=== PATIENT | female | born 1970 | race Caucasian/White ===

== ENCOUNTER 2018-06-22 07:42 | Emergency (ER) | payer BC ==
[~2018-06-22] VITALS: Ht 177.8 cm; Wt 119.5 kg
[~2018-06-22 07:42] MED LIST: CITA-278 PO; FERR-68 PO; OMEP-84 PO; S-AD200T6 PO; TOP25T PO; VITA1TAB20 PO
[2018-06-22] MEDS ORDERED: metoclopramide 5 mg/ml inj IV ONE (08:25)
[2018-06-22] MEDS ORDERED: normal saline 1000ML IV soln IVB ONE ×2 (08:25)
[2018-06-22] MEDS ORDERED: diphenhydrAMINE 50 mg/ml inj IV ONE (08:25)
[2018-06-22] MEDS ORDERED: ketorolac trometh. 30mg/ml inj. IV ONE (08:25)
[2018-06-22 08:28] LABS: CLARITY,URINE SLIGHTLY CLOUDY (Clear); COLOR,URINE YELLOW (Yellow); GLUCOSE, URINE NEGATIVE (Neg); KETONES,URINE NEGATIVE (Neg); LEUKOCYTE ESTERASE ,URINE NEGATIVE (Neg); NITRITES, URINE NEGATIVE (Neg); OCCULT BLOOD,URINE NEGATIVE (Neg); PH,URINE 5.5 (4.8-8.0); PROTEIN,URINE NEGATIVE (Neg); UROBILINOGEN,URINE 0.2 E.U/dL (0.2-1.0)
[2018-06-22 08:38] LABS: UA COLLECTION TYPE CLN CATCH MIDSTREAM
[2018-06-22 08:42] LABS: BACTERIA,URINE 1+ /HPF (Neg); RBC,URINE NONE SEEN /HPF (0-2); SQUAMOUS EPITHELIAL CELL,UR MANY /LPF (FEW); WBC,URINE 0-4 /HPF (0-4)
[2018-06-22 08:43] LABS: MUCUS STRANDS FEW /LPF (Neg); WBC CLUMPS,URINE FEW /HPF (NEGATIVE)
[2018-06-22 09:13] LABS: BASOPHILS % (AUTO) 0.5 % (0-1); EOSINOPHILS # (AUTO) 0.2 X10'3 (0-0.9); EOSINOPHILS % (AUTO) 3.1 % (0-6); HEMATOCRIT 37.8 % (35.0-45.0); HEMOGLOBIN 12.5 g/dl (12.0-16.0); LYMPHOCYTES # (AUTO) 1.7 X10'3 (1.1-4.8); LYMPHOCYTES % (AUTO) 21.9 % (21-51); MEAN CORPUSCULAR HEMOGLOBIN 29.1 PG (27.0-31.0); MEAN CORPUSCULAR VOLUME 88.1 FL (78-98); MEAN PLATELET VOLUME 8.5 FL (7.4-10.4); MONOCYTES # (AUTO) 0.5 X10'3 (0-0.9); MONOCYTES % (AUTO) 5.8 % (2-12); NEUTROPHILS # (AUTO) 5.4 X10'3 (1.8-7.7); NEUTROPHILS % (AUTO) 68.7 % (42-75); PLATELET COUNT 324 X10'3 (140-440); RED CELL DISTRIBUTION WIDTH 13.3 % (11.5-14.5); WHITE BLOOD COUNT 7.8 X10'3 (4.5-11.0)
[2018-06-22 09:27] LABS: PROTHROMBIN TIME 9.7 SECONDS (9.0-12.0)
[2018-06-22 09:37] LABS: ALANINE AMINOTRANSFERASE 24 U/L (12-78); ALBUMIN 3.4 G/DL (3.4-5.0); ALBUMIN/GLOBULIN RATIO 0.8 (1.1-1.5); ALKALINE PHOSPHATASE 101 IU/L (46-116); ANION GAP 9 (8-16); ASPARTATE AMINO TRANSFERASE 9 U/L (10-37); BILIRUBIN,TOTAL 0.2 MG/DL (0.1-1.0); BLOOD UREA NITROGEN 18 MG/DL (7-18); BUN/CREATININE RATIO 17.6 (6.6-38.0); CALCIUM 9.1 MG/DL (8.5-10.1); CHLORIDE 104 MMOL/L (99-107); CREATININE 1.02 MG/DL (0.40-0.90); GLUCOSE 107 MG/DL (70-104); POTASSIUM 4.1 MMOL/L (3.5-5.1); SODIUM 139 MMOL/L (135-145); TOTAL CARBON DIOXIDE 25.7 MMOL/L (24-32); TOTAL PROTEIN 7.8 G/DL (6.4-8.2); eGFR 58 ML/MIN
[2018-06-22 10:37] VITALS: BP 129/67
[2018-06-22] MEDS ORDERED: ONDA4TAB12 PO (11:22)
== END 2018-06-22 11:42 | disposition home or self-care (01) ==
LOC: ER 07:42
DX: R10.11 Right upper quadrant pain (principal); F17.210 Nicotine dependence, cigarettes, uncomplicated; Z88.0 Allergy status to penicillin; Z91.018 Allergy to other foods; Z79.899 Other long term (current) drug therapy; Z86.19 Personal history of other infectious and parasitic diseases
CPT/HCPCS: 36415; 80053; 81001; 85025; 85610; 96361; 96374; 96375; 99284; J1200; J1885; J2765; J7030

== ENCOUNTER 2018-11-10 08:06 | Outpatient (CLI) | payer OTHER ==
[~2018-11-10 08:06] MED LIST changes: -CITA-278 PO; +CITA20TA28 PO; +ONDA4TAB12 PO
[2018-11-10 09:22] LABS: BASOPHILS # (AUTO) 0.1 X10'3 (0-0.2); BASOPHILS % (AUTO) 1.2 % (0-1); EOSINOPHILS # (AUTO) 0.3 X10'3 (0-0.9); EOSINOPHILS % (AUTO) 2.8 % (0-6); HEMATOCRIT 39.7 % (35.0-45.0); HEMOGLOBIN 13.4 g/dl (12.0-16.0); LYMPHOCYTES # (AUTO) 2.3 X10'3 (1.1-4.8); LYMPHOCYTES % (AUTO) 23.9 % (21-51); MEAN CORPUSCULAR HEMOGLOBIN 28.9 PG (27.0-31.0); MEAN CORPUSCULAR HGB CONC 33.7 g/dL (33.0-36.5); MEAN PLATELET VOLUME 7.7 FL (7.4-10.4); MONOCYTES # (AUTO) 0.6 X10'3 (0-0.9); MONOCYTES % (AUTO) 6.1 % (2-12); NEUTROPHILS # (AUTO) 6.4 X10'3 (1.8-7.7); PLATELET COUNT 383 X10'3 (140-440); RED BLOOD COUNT 4.62 X10'6 (4.20-5.60); RED CELL DISTRIBUTION WIDTH 13.1 % (11.5-14.5); WHITE BLOOD COUNT 9.6 X10'3 (4.5-11.0)
[2018-11-10 09:42] LABS: CLARITY,URINE CLOUDY (Clear); COLOR,URINE YELLOW (Yellow); GLUCOSE, URINE NEGATIVE (Neg); KETONES,URINE NEGATIVE (Neg); LEUKOCYTE ESTERASE ,URINE NEGATIVE (Neg); NITRITES, URINE NEGATIVE (Neg); OCCULT BLOOD,URINE NEGATIVE (Neg); PROTEIN,URINE NEGATIVE (Neg); UROBILINOGEN,URINE 0.2 E.U/dL (0.2-1.0)
[2018-11-10 09:44] LABS: ALANINE AMINOTRANSFERASE 28 U/L (12-78); ALBUMIN 3.3 G/DL (3.4-5.0); ALBUMIN/GLOBULIN RATIO 0.7 (1.1-1.5); ALKALINE PHOSPHATASE 93 IU/L (46-116); ANION GAP 12 (8-16); ASPARTATE AMINO TRANSFERASE 10 U/L (10-37); BILIRUBIN,TOTAL 0.2 MG/DL (0.1-1.0); BLOOD UREA NITROGEN 24 MG/DL (7-18); BUN/CREATININE RATIO 24.7 (6.6-38.0); CALCIUM 8.9 MG/DL (8.5-10.1); CHLORIDE 104 MMOL/L (99-107); CHOL/HDL RATIO 5.3 (0.00-4.99); CHOLESTEROL 217 MG/DL (0-200); CREATININE 0.97 MG/DL (0.40-0.90); GLUCOSE 106 MG/DL (70-104); HDL CHOLESTEROL 41 MG/DL (35-60); LDL CHOLESTEROL 102 MG/DL (50-100); POTASSIUM 4.3 MMOL/L (3.5-5.1); SODIUM 138 MMOL/L (135-145); TOTAL CARBON DIOXIDE 21.6 MMOL/L (24-32); TOTAL PROTEIN 7.8 G/DL (6.4-8.2); TRIGLYCERIDES 342 MG/DL (20-135); eGFR 61 ML/MIN
[2018-11-10 09:45] LABS: UA COLLECTION TYPE NON-SPECIFIED
[2018-11-10 10:31] LABS: HYALINE CASTS 0-3 /LPF (NEGATIVE); MUCUS STRANDS FEW /LPF (Neg); SQUAMOUS EPITHELIAL CELL,UR MANY /LPF (FEW)
[2018-11-10 10:32] LABS: BACTERIA,URINE 2+ /HPF (Neg); RBC,URINE 0-2 /HPF (0-2); WBC,URINE 0-4 /HPF (0-4)
== END 2018-11-10 23:59 | disposition home or self-care (01) ==
LOC: LAB 08:06
PROVIDERS: ATTEND Family Medicine
DX: Z00.00 Encounter for general adult medical examination without abnormal findings (principal); F43.10 Post-traumatic stress disorder, unspecified; F32.9 Major depressive disorder, single episode, unspecified; Z86.19 Personal history of other infectious and parasitic diseases
CPT/HCPCS: 36415; 80053; 80061; 81001; 84439; 84443; 85025

== ENCOUNTER 2019-01-17 06:38 | Outpatient (CLI) | payer OTHER ==
[~2019-01-17 06:38] MED LIST changes: +PHEN-824 PO
[2019-01-17 09:12] LABS: ALANINE AMINOTRANSFERASE 24 U/L (12-78); ALBUMIN 3.2 G/DL (3.4-5.0); ALBUMIN/GLOBULIN RATIO 0.7 (1.1-1.5); ALKALINE PHOSPHATASE 85 IU/L (46-116); ANION GAP 8 (8-16); ASPARTATE AMINO TRANSFERASE 9 U/L (10-37); BILIRUBIN,TOTAL 0.3 MG/DL (0.1-1.0); BLOOD UREA NITROGEN 13 MG/DL (7-18); BUN/CREATININE RATIO 14.1 (6.6-38.0); CALCIUM 8.5 MG/DL (8.5-10.1); CHLORIDE 104 MMOL/L (99-107); CREATININE 0.92 MG/DL (0.40-0.90); GLUCOSE 96 MG/DL (70-104); POTASSIUM 4.1 MMOL/L (3.5-5.1); SODIUM 138 MMOL/L (135-145); TOTAL CARBON DIOXIDE 25.6 MMOL/L (24-32); TOTAL PROTEIN 7.6 G/DL (6.4-8.2); eGFR 65 ML/MIN
[2019-01-17] MEDS ORDERED: ONDA4TAB12 PO (11:36)
[2019-01-17] MEDS ORDERED: CEPH500C5 PO (11:36)
[2019-01-17] MEDS ORDERED: HYDR-3965 PO (11:36)
== END 2019-01-17 23:59 | disposition home or self-care (01) ==
LOC: LAB 06:38
PROVIDERS: ATTEND Family Medicine
DX: N20.0 Calculus of kidney (principal); F32.9 Major depressive disorder, single episode, unspecified; F43.10 Post-traumatic stress disorder, unspecified; Z86.19 Personal history of other infectious and parasitic diseases
CPT/HCPCS: 36415; 80053; 86803

== ENCOUNTER 2019-01-17 09:13 | Emergency (ER) | payer OTHER ==
[~2019-01-17] VITALS: Ht 177.8 cm; Wt 124.1 kg
[2019-01-17] MEDS ORDERED: ibuprofen tablet 400 MG TABLET PO ONE (10:45)
[2019-01-17] MEDS ORDERED: HYDROcodone/acetaminophen 5mg/325mg tablet PO ONE (10:45)
[2019-01-17 10:51] LABS: CLARITY,URINE SLIGHTLY CLOUDY (Clear); COLOR,URINE YELLOW (Yellow); GLUCOSE, URINE NEGATIVE (Neg); KETONES,URINE NEGATIVE (Neg); LEUKOCYTE ESTERASE ,URINE MODERATE (Neg); NITRITES, URINE NEGATIVE (Neg); OCCULT BLOOD,URINE MODERATE (Neg); PH,URINE 5.5 (4.8-8.0); PROTEIN,URINE TRACE mg/dl (Neg); UROBILINOGEN,URINE 0.2 E.U/dL (0.2-1.0)
[2019-01-17 10:55] LABS: UA COLLECTION TYPE CLN CATCH MIDSTREAM
[2019-01-17 10:57] LABS: WBC,URINE TNTC /HPF (0-4)
[2019-01-17 10:58] LABS: BACTERIA,URINE 3+ /HPF (Neg); SQUAMOUS EPITHELIAL CELL,UR MODERATE /LPF (FEW); WBC CLUMPS,URINE FEW /HPF (NEGATIVE)
[2019-01-17] MEDS ORDERED: cephalexin 250mg capsule PO ONE (11:35)
[2019-01-17] MEDS ORDERED: CEPH500C5 PO (11:36)
[2019-01-17] MEDS ORDERED: ONDA4TAB12 PO (11:36)
[2019-01-17] MEDS ORDERED: HYDR-3965 PO (11:36)
[2019-01-17 12:15] VITALS: BP 121/75
== END 2019-01-17 12:18 | disposition home or self-care (01) ==
LOC: ER 09:14
DX: N10 Acute pyelonephritis (principal); F17.210 Nicotine dependence, cigarettes, uncomplicated; Z88.0 Allergy status to penicillin; Z91.018 Allergy to other foods; Z79.899 Other long term (current) drug therapy; Z79.2 Long term (current) use of antibiotics; Z87.440 Personal history of urinary (tract) infections; Z86.19 Personal history of other infectious and parasitic diseases
CPT/HCPCS: 74176; 81001; 99284

== ENCOUNTER 2019-01-26 09:17 | Outpatient (CLI) | payer OTHER ==
[~2019-01-26 09:17] MED LIST changes: +CEPH500C5 PO; +HYDR-3965 PO
[2019-01-26] MEDS ORDERED: iohexol 300mg/ml 100ml inj. ONE (09:22)
== END 2019-01-26 23:59 | disposition home or self-care (01) ==
LOC: 64 CT 09:17
PROVIDERS: ATTEND Family Medicine
DX: K76.0 Fatty (change of) liver, not elsewhere classified (principal); K57.30 Diverticulosis of large intestine without perforation or abscess without bleeding; K76.89 Other specified diseases of liver; Z87.891 Personal history of nicotine dependence; Z90.710 Acquired absence of both cervix and uterus
CPT/HCPCS: 74177; Q9967

== ENCOUNTER 2019-02-07 07:01 | Day surgery (SDC) | payer OTHER ==
[~2019-02-07] VITALS: Ht 177.8 cm; Wt 124.1 kg
[2019-02-07 07:05] VITALS: BP 151/92
[2019-02-07] MEDS ORDERED: SERT50TA PO (07:26)
[2019-02-07] MEDS ORDERED: SERT25TA PO (07:26)
[2019-02-07] MEDS ORDERED: CHOL2000 PO (07:27)
[2019-02-07] MEDS ORDERED: ESOM40CA49 PO (07:27)
[2019-02-07] MEDS ORDERED: ALBU8.5H8 IH (07:28)
[2019-02-07] MEDS ORDERED: PRAZ2CAP2 PO (07:28)
[2019-02-07] MEDS ORDERED: RIZA10TA27 PO (07:29)
[2019-02-07] MEDS ORDERED: VALA500T PO (07:30)
[2019-02-07] MEDS ORDERED: HYDR-4383 PO (07:31)
[2019-02-07] MEDS ORDERED: fentaNYL/PF 50MCG/1 ML 2ML syringe ONE ×2 (07:39→08:40)
[2019-02-07] MEDS ORDERED: MIDAZolam 5mg/5ml vial ONE (07:39)
[2019-02-07] MEDS ORDERED: diphenhydrAMINE 50 mg/ml inj ONE (07:40)
[2019-02-07 09:06] VITALS: BP 138/84
[2019-02-07 09:16] VITALS: BP 126/73
[2019-02-07 09:26] VITALS: BP 132/73
[2019-02-07 09:36] VITALS: BP 135/84
== END 2019-02-07 09:40 | disposition home or self-care (01) ==
LOC: GI LAB 07:01
PROVIDERS: ATTEND Internal Medicine Gastroenterology
DX: D12.5 Benign neoplasm of sigmoid colon (principal); K57.30 Diverticulosis of large intestine without perforation or abscess without bleeding; Z87.891 Personal history of nicotine dependence; Z98.890 Other specified postprocedural states; F10.10 Alcohol abuse, uncomplicated; F19.10 Other psychoactive substance abuse, uncomplicated; F32.9 Major depressive disorder, single episode, unspecified; Z90.710 Acquired absence of both cervix and uterus; Z85.41 Personal history of malignant neoplasm of cervix uteri; Z87.19 Personal history of other diseases of the digestive system
CPT/HCPCS: 45385; 99152; 99153; C1773; J1200; J2250; J3010; J7040; A4620

== ENCOUNTER 2019-03-16 08:13 | Outpatient (CLI) | payer OTHER ==
[~2019-03-16 08:13] MED LIST changes: +ALBU8.5H8 IH; -CEPH500C5 PO; +CHOL2000 PO; -CITA20TA28 PO; +ESOM40CA49 PO; -FERR-68 PO; -HYDR-3965 PO; +HYDR-4383 PO; -OMEP-84 PO; -ONDA4TAB12 PO; -PHEN-824 PO; +PRAZ2CAP2 PO; +RIZA10TA27 PO; +SERT25TA PO; +SERT50TA PO; -TOP25T PO; +VALA500T PO
[2019-03-16] MEDS ORDERED: iohexol 300mg/ml 100ml inj. ONE (08:38)
== END 2019-03-16 23:59 | disposition home or self-care (01) ==
LOC: 64 CT 08:13
PROVIDERS: ATTEND Family Medicine
DX: N82.1 Other female urinary-genital tract fistulae (principal); J43.9 Emphysema, unspecified
CPT/HCPCS: 74177; Q9967

== ENCOUNTER 2019-04-05 05:18 | Inpatient (IN) | payer OTHER ==
[2019-04-03 10:41] LABS: BASOPHILS # (AUTO) 0.1 X10'3 (0-0.2); BASOPHILS % (AUTO) 1.1 % (0-1); EOSINOPHILS # (AUTO) 0.3 X10'3 (0-0.9); EOSINOPHILS % (AUTO) 3.1 % (0-6); LYMPHOCYTES # (AUTO) 2.2 X10'3 (1.1-4.8); LYMPHOCYTES % (AUTO) 24.9 % (21-51); MEAN CORPUSCULAR HEMOGLOBIN 28.8 PG (27.0-31.0); MEAN CORPUSCULAR HGB CONC 33.6 g/dL (33.0-36.5); MEAN PLATELET VOLUME 8.6 FL (7.4-10.4); MONOCYTES # (AUTO) 0.5 X10'3 (0-0.9); MONOCYTES % (AUTO) 5.6 % (2-12); NEUTROPHILS # (AUTO) 5.7 X10'3 (1.8-7.7); NEUTROPHILS % (AUTO) 65.3 % (42-75); PRE OP HEMATOCRIT 39.3 % (35.0-45.0); PRE OP HEMOGLOBIN 13.2 g/dL (12.0-16.0); PRE OP PLATELET COUNT 333 X10'3 (140-440); RED BLOOD COUNT 4.57 X10'6 (4.20-5.60); RED CELL DISTRIBUTION WIDTH 13.5 % (11.5-14.5)
[2019-04-03 10:44] LABS: CLARITY,URINE CLOUDY (Clear); COLOR,URINE YELLOW (Yellow); GLUCOSE, URINE NEGATIVE (Neg); KETONES,URINE NEGATIVE (Neg); LEUKOCYTE ESTERASE ,URINE TRACE (Neg); NITRITES, URINE NEGATIVE (Neg); OCCULT BLOOD,URINE NEGATIVE (Neg); PH,URINE 5.5 (4.8-8.0); PROTEIN,URINE NEGATIVE (Neg); UROBILINOGEN,URINE 0.2 E.U/dL (0.2-1.0)
[2019-04-03 10:50] LABS: PRE OP INR 0.9 INR
[2019-04-03 10:52] LABS: UA COLLECTION TYPE CLN CATCH MIDSTREAM
[2019-04-03 10:54] LABS: BACTERIA,URINE 2+ /HPF (Neg); MUCUS STRANDS NONE SEEN /LPF (Neg); RBC,URINE NONE SEEN /HPF (0-2); SQUAMOUS EPITHELIAL CELL,UR FEW /LPF (FEW); WBC,URINE 50-100 /HPF (0-4)
[2019-04-03 10:55] LABS: WBC CLUMPS,URINE FEW /HPF (NEGATIVE)
[2019-04-03 10:55] LABS: ALBUMIN 3.4 G/DL (3.4-5.0); ALBUMIN/GLOBULIN RATIO 0.7 (1.1-1.5); ALKALINE PHOSPHATASE 95 IU/L (46-116); BLOOD UREA NITROGEN 15 MG/DL (7-18); BUN/CREATININE RATIO 14.6 (6.6-38.0); CALCIUM 8.8 MG/DL (8.5-10.1); CHLORIDE 107 MMOL/L (99-107); CREATININE 1.03 MG/DL (0.40-0.90); PRE OP ALT 24 U/L (30-65); PRE OP ANION GAP 10 (8-16); PRE OP AST 12 U/L (10-37); PRE OP BILIRUB, TOTAL 0.2 MG/DL (0.0-1.0); PRE OP GLUCOSE 111 MG/DL (70-104); PRE OP POTASSIUM 4.1 MMOL/L (3.4-5.1); PRE OP SODIUM 140 MMOL/L (135-145); TOTAL CARBON DIOXIDE 23.4 MMOL/L (24-32); TOTAL PROTEIN 8.2 G/DL (6.4-8.2); eGFR 57 ML/MIN
[~2019-04-05] VITALS: Ht 177.8 cm; Wt 121.0 kg
[2019-04-05] VITALS (21 sets, daily range): BP systolic 99–158; BP diastolic 58–100
[~2019-04-05 05:18] MED LIST changes: -ALBU8.5H8 IH; -HYDR-4383 PO; -PRAZ2CAP2 PO; -RIZA10TA27 PO; -S-AD200T6 PO; -SERT25TA PO; +ringers solution, lacted 1,000 ML IV SCH
[2019-04-05] MEDS ORDERED: clindamycin-Cleocin 900mg/D5W 50 ML IV ONE (05:30)
[2019-04-05] MEDS ORDERED: gentamicin inj 450 MG in normal saline 100ml IV soln 88.75 ML IV ONE (05:30)
[2019-04-05] MEDS ORDERED: famotidine 20mg tablet PO ONE (05:30)
[2019-04-05] MEDS ORDERED: LIDOcaine 1% (10mg/ml) 2ml vial ONE (05:57)
[2019-04-05] MEDS ORDERED: ceFAZolin 1000mg inj ONE (06:14)
[2019-04-05] MEDS ORDERED: BUPIVAcaine/PF 2.5 mg/ml (0.25%) 30ml vial ONE ×2 (06:14→07:03)
[2019-04-05] MEDS ORDERED: BUPIVAcaine/PF 2.5mg/ml (0.25%) 10ml vial ONE (07:03)
[2019-04-05] MEDS ORDERED: BUPIVACAINE liposomal/PF 13.3 MG/ML vial IM ONE (07:04)
[2019-04-05] MEDS ORDERED: midazolam 2 mg/2 ml injection ONE (07:10)
[2019-04-05] MEDS ORDERED: fentaNYL /PF 50mcg/ml 5ml ampule ONE (07:11)
[2019-04-05] MEDS ORDERED: rocuronium 10mg/ml inj IV ONE ×2 (07:11→08:44)
[2019-04-05] MEDS ORDERED: propofol inj 20 ML IV ONE (07:11)
[2019-04-05] MEDS ORDERED: sevoflurane 250ml liquid IH ONE (07:27)
[2019-04-05] MEDS ORDERED: iohexol 300 MG/1 ML 50ml polymer ONE (07:40)
[2019-04-05] MEDS ORDERED: morphine 4 MG/ML inj SYRINge IV PRN ×2 (08:30)
[2019-04-05] MEDS ORDERED: ondansetron/PF 4mg/2ml inj IV PRN (08:30)
[2019-04-05] MEDS ORDERED: meperidine/PF 25mg/ml syringe IV PRN ×2 (08:30)
[2019-04-05] MEDS ORDERED: proCHLORperazine 10 MG/2 ml inj IV PRN (08:30)
[2019-04-05] MEDS ORDERED: ringers solution, lacted 1,000 ML IV SCH (08:30)
[2019-04-05] MEDS ORDERED: acetaminophen 1,000mg/100ml IV 100 ML IV ONE (09:17)
[2019-04-05] MEDS ORDERED: ondansetron/PF 4mg/2ml inj ONE (10:22)
[2019-04-05] MEDS ORDERED: neostigmine methylsulfate 1 MG/ML 10ml vial ONE (10:26)
[2019-04-05] MEDS ORDERED: glycopyrrolate 0.2mg/ml inj ONE (10:48)
--- NOTE | 2019-04-05 10:50 | NUR ---
Received from OR via BED, accompanied by Anesthesiologist DR NEFF and report given by Anesthesiologist. PT DROWSY, DENIES PAIN, ABDOMEN W/4 LAP SITES, 3 W/BANDAIDS CDI, 1 W/ISLAND DRSG COVERING CDI, COLE CATHETER TO GRAVITY DRAINAGE W/SHANNON MEJÍA IN TUBING. Addendum: 04/05/19 at 1117 by Nicole Dominguez RN Amended: Links added.
[2019-04-05] MEDS: meperidine/PF 25mg/ml syringe IV PRN ×3 (11:06→11:40)
--- NOTE | 2019-04-05 11:41 | NUR ---
Patient in room PAS IN 900. I have received report from KIRSTIN Rivera and had the opportunity to ask questions and will assume patient care when patient arrives to room 353.
[2019-04-05] MEDS ORDERED: naloxone 0.4 mg/ml inj IV PRN (11:50)
[2019-04-05] MEDS ORDERED: CADD PCA waste documentation MC SCH (11:50)
[2019-04-05] MEDS: HYDROmorphone/NS 1 mg/ml CADD 50 ML IV SCH ×7 (11:55→22:38)
--- NOTE | 2019-04-05 12:10 | NUR ---
Report called to receiving nurse. Transferred via BED, NO Belongings, RECEIVING RN AT BEDSIDE TO RECEIVE PT, BLL, CALL LIGHT GIVEN, SIDE RAILS UP, PTS AT BEDSIDE. Special Issues communicated to receiving nurse. YES. Addendum: 04/05/19 at 1229 by Nicole Dominguez RN Amended: Links added.
--- NOTE | 2019-04-05 12:33 | NUR ---
Received patient to room 353. Patient's spouse at bedside. Patient is drowsy, but easily awakens to voice. C/O pain, educated use of CADD pump. X4 lap sites with x3 bandaids and x1 small border dressing CDI. Rayo catheter draining to gravity with light pink colored urine. Bed is low and locked with x2 side rails up. Call light placed within reach. Post op vitals initiated, VSS.
[2019-04-05] MEDS: normal saline 1000ml 1,000 ML IV SCH ×3 (13:45→21:02)
[2019-04-05] MEDS: clindamycin 600mg/D5W 50ml 50 ML IV SCH ×2 (16:24→20:28)
--- NOTE | 2019-04-05 18:25 | NUR ---
Patient in room [facility] 353. I have received report from KIRSTIN PATTON and had the opportunity to ask questions and assume patient care. PT RR BETWEEN 8 TO 10, DIFFICULT TO AROUSE, RN TO GIVE NARCAN. 88% OF 2 L N/C, O2 UP TO 4 L N/C 93%, CONTINUE TO AROUSE AND ENC C&DB WHILE RN GETTING NARCAN. Addendum: 04/06/19 at 0213 by Emily Sevilla RN Amended: Links added.
--- NOTE | 2019-04-05 18:43 | NUR ---
more arousable, opens eys taking sips of water, john mtz turned off will continue to monitor. Addendum: 04/05/19 at 1844 by Emily Sevilla RN Amended: Links added.
--- NOTE | 2019-04-05 18:54 | NUR ---
Problems reprioritized. Patient report given, questions answered & plan of care reviewed with KIRSTIN MURPHY.
--- NOTE | 2019-04-05 18:55 | NUR ---
ROUNDED ON PATIENT AFTER SHIFT CHANGE REPORT. PATIENT WAS APNEIC AND DIFFICULT TO AROUSE, RESPIRATIONS WERE 9 PER MINUTE AND CHEST RETRACTING WITH EACH RESPIRATION. UNABLE TO AROUSE PATIENT WITH CALLING OUT PATIENT'S NAME, SHAKING PATIENT AND STERNAL RUB. DILAUDID CADD TURNED OFF AND NARCAN ADMINISTERED ORDERED WITH KIRSTIN MURPHY AT BEDSIDE. AFTER NARCAN GIVEN PATIENT WAS EASILY AWAKEN AND SPEAKING TO KIRSTIN MURPHY AND EATING ICE CHIPS. IZZY AND STEPH RIVERA RN WERE NOTIFIED. DR IBANEZ CALLED BUT NO ANSWER AND UNABLE TO LEAVE VOICE MAIL VOICEMAIL "MAIL BOX IS FULL AND CANNOT ACCEPT ANY MESSAGES". ATTEMPTED TO CALL DR IBANEZ AGAIN BUT AGAIN NO ANSWER. KIRSTIN MURPHY AWARE.
[2019-04-05] MEDS: ketorolac trometh. 30mg/ml inj. IV PRN (22:37)
[2019-04-06 00:30] VITALS: BP 95/55
[2019-04-06] MEDS: HYDROmorphone/NS 1 mg/ml CADD 50 ML IV SCH ×6 (01:00→11:00)
[2019-04-06] MEDS: normal saline 1000ml 1,000 ML IV SCH ×3 (03:11→17:52)
[2019-04-06 05:09] VITALS: BP 94/49
[2019-04-06] MEDS: ketorolac trometh. 30mg/ml inj. IV PRN ×3 (05:31→20:50)
--- NOTE | 2019-04-06 05:39 | NUR ---
alert and oriented, on phone rr 12 to 16, sat 93% 2l n/c enc c&db, lap sites cd&i. Addendum: 04/06/19 at 0540 by Emily Sevilla RN Amended: Links added.
--- NOTE | 2019-04-06 06:14 | NUR ---
Problems reprioritized. Patient report given, questions answered & plan of care reviewed with KIRSTIN LANGLEY. Addendum: 04/06/19 at 0614 by Emily Sevilla RN Amended: Links added. Addendum: 04/06/19 at 0616 by Emily Sevilla RN DISSREGARD NOTE.
--- NOTE | 2019-04-06 06:36 | NUR ---
Problems reprioritized. Patient report given, questions answered & plan of care reviewed with KIRSTIN KUO. Addendum: 04/06/19 at 0637 by Emily Sevilla RN Amended: Links added.
--- NOTE | 2019-04-06 06:43 | NUR ---
Patient in room [facility] 353. I have received report from KIRSTIN Guevara and had the opportunity to ask questions and assume patient care.
--- NOTE | 2019-04-06 06:44 | NUR ---
Patient in Room [facility] 53A. Received report from KIRSTIN Guevara. Introduced self. Pt resting comfortably in bed.
[2019-04-06 07:13] VITALS: BP 95/50
[2019-04-06] MEDS: ondansetron/PF 4mg/2ml inj IV PRN ×2 (08:39→20:50)
[2019-04-06] MEDS ORDERED: diphenhydrAMINE 25mg capsule PO PRN (10:00)
[2019-04-06 11:00] VITALS: BP 105/52
[2019-04-06] MEDS: HYDROcodone/acetaminophen 10/325mg tab PO PRN (15:04)
[2019-04-06 18:00] VITALS: BP 134/80
--- NOTE | 2019-04-06 18:42 | NUR ---
Problems reprioritized. Patient report given to KIRSTIN Cruz, questions answered & plan of care reviewed with KIRSTIN Warren.
--- NOTE | 2019-04-06 19:12 | NUR ---
Patient in room [facility] 353. I have received report from Briana FULTON and had the opportunity to ask questions and assume patient care.
[2019-04-06] MEDS: clindamycin 600mg/D5W 50ml 50 ML IV SCH (20:50)
[2019-04-06] MEDS ORDERED: sertraline 50mg tablet PO SCH (21:00)
[2019-04-07] VITALS: BP 122/53
[2019-04-07] MEDS: normal saline 1000ml 1,000 ML IV SCH ×2 (01:03→07:49)
[2019-04-07] MEDS: ketorolac trometh. 30mg/ml inj. IV PRN (04:39)
--- NOTE | 2019-04-07 06:19 | NUR ---
Problems reprioritized. Patient report given, questions answered & plan of care reviewed with Briana FULTON.
--- NOTE | 2019-04-07 06:38 | NUR ---
Patient in room [facility] 353. I have received report from KIRSTIN Cruz and had the opportunity to ask questions and assume patient care.
--- NOTE | 2019-04-07 06:46 | NUR ---
Patient in room [facility] 353. I have received report from KIRSTIN Cruz and had the opportunity to ask questions and assume patient care.
[2019-04-07 07:00] VITALS: BP 134/67
[2019-04-07] MEDS: clindamycin 600mg/D5W 50ml 50 ML IV SCH ×2 (07:49→13:37)
[2019-04-07] MEDS ORDERED: pantoprazole 40mg Tablet.DR PO SCH (08:00)
[2019-04-07 11:00] VITALS: BP 135/66
[2019-04-07] MEDS: HYDROcodone/acetaminophen 10/325mg tab PO PRN (15:08)
--- NOTE | 2019-04-07 15:26 | NUR ---
Pt discharged to home at 1515, with all belongings, in private vehicle accompanied by . Discharge instructions and medications reviewed. New prescriptions called in by Dr Boudreaux office. Pt instructed to follow up on Saturday 04/14 to remove alvarado catheter. Leg bag and night bag sent home with patient with instructions for use. Pt refused having leg bag placed prior to discharge. Pt escorted to [facility] via wheelchair by student RN.
[2019-04-07] MEDS ORDERED: lactobacillus rhamnosus 10,000 MMU CELLS/CAPSULE PO SCH (20:00)
== END 2019-04-07 15:15 | disposition home or self-care (01) | DRG 330 ==
LOC: PAS IN 05:18 → EDSTATUS 07:00 → SUR 3N 12:46
PROVIDERS: ADMIT Surgery; ATTEND Surgery
PROC: 0DNW4ZZ Release Peritoneum, Percutaneous Endoscopic Approach (ICD-10-PCS; 2019-04-05)
PROC: 3E0T3BZ Introduction of Anesthetic Agent into Peripheral Nerves and Plexi, Percutaneous Approach (ICD-10-PCS; 2019-04-05)
PROC: BT141ZZ Fluoroscopy of Kidneys, Ureters and Bladder using Low Osmolar Contrast (ICD-10-PCS; 2019-04-05)
PROC: 0T788DZ Dilation of Bilateral Ureters with Intraluminal Device, Via Natural or Artificial Opening Endoscopic (ICD-10-PCS; principal; 2019-04-05 07:27)
PROC: 0DBN4ZZ Excision of Sigmoid Colon, Percutaneous Endoscopic Approach (ICD-10-PCS; 2019-04-05 07:27)
DX: K57.92 Diverticulitis of intestine, part unspecified, without perforation or abscess without bleeding (principal); N32.1 Vesicointestinal fistula; N73.6 Female pelvic peritoneal adhesions (postinfective); B19.20 Unspecified viral hepatitis C without hepatic coma; E66.9 Obesity, unspecified; Z80.9 Family history of malignant neoplasm, unspecified; Z86.19 Personal history of other infectious and parasitic diseases; Z87.440 Personal history of urinary (tract) infections; Z90.710 Acquired absence of both cervix and uterus; Z68.38 Body mass index [BMI] 38.0-38.9, adult; Z88.0 Allergy status to penicillin
CPT/HCPCS: Z7506; Z7508; 36415; 76000; 80053; 81001; 85025; 85610; 85730; 86885; 86900; 86901; 87077; 87081; 87088; 87186; 93005; A4215; A4355; A4618; A7000; C1758; C1769; C9290; G0378; J0131; J0690; J1170; J1580; J1885; J2001; J2175; J2250; J2310; J2405; J2704; J2710; J3010; J3490; J7030; J7120; Q0163; Q9967

== ENCOUNTER 2019-05-11 09:10 | Day surgery (SDC) | payer BC ==
[~2019-05-11 09:10] MED LIST changes: -ringers solution, lacted 1,000 ML IV SCH
[2019-05-11] MEDS ORDERED: LIDOcaine 2% 5ml jelly ONE (10:34)
== END 2019-05-11 12:38 | disposition home or self-care (01) ==
LOC: WOUND CARE 09:10
PROVIDERS: ATTEND Surgery
DX: T81.89XA Other complications of procedures, not elsewhere classified, initial encounter (principal); L98.492 Non-pressure chronic ulcer of skin of other sites with fat layer exposed; E66.9 Obesity, unspecified; Z68.38 Body mass index [BMI] 38.0-38.9, adult; Z86.19 Personal history of other infectious and parasitic diseases; Z87.891 Personal history of nicotine dependence; Y83.8 Other surgical procedures as the cause of abnormal reaction of the patient, or of later complication, without mention of misadventure at the time of the procedure
CPT/HCPCS: 10140; 11042; 87070; 87075; 87077; 87102; 87186; A6266; A4663; A6243

== ENCOUNTER 2019-05-15 08:30 | Day surgery (SDC) | payer BC ==
[2019-05-15] MEDS ORDERED: LIDOcaine 2% 5ml jelly ONE (09:38)
== END 2019-05-15 10:47 | disposition home or self-care (01) ==
LOC: WOUND CARE 08:30
PROVIDERS: ATTEND Surgery
DX: T81.89XA Other complications of procedures, not elsewhere classified, initial encounter (principal); L98.492 Non-pressure chronic ulcer of skin of other sites with fat layer exposed; E66.9 Obesity, unspecified; Z68.38 Body mass index [BMI] 38.0-38.9, adult; Z86.19 Personal history of other infectious and parasitic diseases; Z87.891 Personal history of nicotine dependence; Z90.710 Acquired absence of both cervix and uterus; Y83.8 Other surgical procedures as the cause of abnormal reaction of the patient, or of later complication, without mention of misadventure at the time of the procedure
CPT/HCPCS: A6266; G0463; A4663; A6243

== ENCOUNTER 2019-05-18 08:02 | Day surgery (SDC) | payer BC ==
[2019-05-18] MEDS ORDERED: LIDOcaine 2% 5ml jelly ONE (09:12)
[2019-05-18] MEDS ORDERED: LIDOcaine 1%/PF 5ML 10 MG/ML VIAL ONE (10:09)
== END 2019-05-18 11:06 | disposition home or self-care (01) ==
LOC: WOUND CARE 08:02
PROVIDERS: ATTEND Surgery
DX: T81.30XD Disruption of wound, unspecified, subsequent encounter (principal); L98.492 Non-pressure chronic ulcer of skin of other sites with fat layer exposed; E66.9 Obesity, unspecified; Z68.38 Body mass index [BMI] 38.0-38.9, adult; Z86.19 Personal history of other infectious and parasitic diseases; Z87.891 Personal history of nicotine dependence; Z90.710 Acquired absence of both cervix and uterus; Y83.8 Other surgical procedures as the cause of abnormal reaction of the patient, or of later complication, without mention of misadventure at the time of the procedure
CPT/HCPCS: 11042; 97605; A6266; A4663

== ENCOUNTER 2019-05-22 08:12 | Day surgery (SDC) | payer BC ==
[2019-05-22] MEDS ORDERED: LIDOcaine 2% 5ml jelly ONE (09:35)
== END 2019-05-22 10:40 | disposition home or self-care (01) ==
LOC: WOUND CARE 08:12
PROVIDERS: ATTEND Surgery
DX: T81.30XD Disruption of wound, unspecified, subsequent encounter (principal); L98.492 Non-pressure chronic ulcer of skin of other sites with fat layer exposed; E66.9 Obesity, unspecified; Z68.38 Body mass index [BMI] 38.0-38.9, adult; Z86.19 Personal history of other infectious and parasitic diseases; Z87.891 Personal history of nicotine dependence; Z90.710 Acquired absence of both cervix and uterus; Y83.8 Other surgical procedures as the cause of abnormal reaction of the patient, or of later complication, without mention of misadventure at the time of the procedure
CPT/HCPCS: 97605; A4663

== ENCOUNTER 2019-05-25 08:05 | Day surgery (SDC) | payer BC, OTHER ==
[2019-05-25] MEDS ORDERED: LIDOcaine 2% 5ml jelly ONE (09:24)
== END 2019-05-25 10:50 | disposition home or self-care (01) ==
LOC: WOUND CARE 08:05
PROVIDERS: ATTEND Surgery
DX: T81.30XD Disruption of wound, unspecified, subsequent encounter (principal); L98.492 Non-pressure chronic ulcer of skin of other sites with fat layer exposed; E66.9 Obesity, unspecified; Z68.38 Body mass index [BMI] 38.0-38.9, adult; Z86.19 Personal history of other infectious and parasitic diseases; Z87.891 Personal history of nicotine dependence; Z90.710 Acquired absence of both cervix and uterus; Y83.8 Other surgical procedures as the cause of abnormal reaction of the patient, or of later complication, without mention of misadventure at the time of the procedure
CPT/HCPCS: 97605; A4456; A4663

== ENCOUNTER 2019-05-29 07:40 | Day surgery (SDC) | payer BC ==
[2019-05-29] MEDS ORDERED: LIDOcaine 2% 5ml jelly ONE (08:51)
== END 2019-05-29 10:15 | disposition home or self-care (01) ==
LOC: WOUND CARE 07:40
PROVIDERS: ATTEND Surgery
DX: T81.30XD Disruption of wound, unspecified, subsequent encounter (principal); L98.492 Non-pressure chronic ulcer of skin of other sites with fat layer exposed; E66.9 Obesity, unspecified; Z68.38 Body mass index [BMI] 38.0-38.9, adult; Z86.19 Personal history of other infectious and parasitic diseases; Z87.891 Personal history of nicotine dependence; Z90.710 Acquired absence of both cervix and uterus; Y83.8 Other surgical procedures as the cause of abnormal reaction of the patient, or of later complication, without mention of misadventure at the time of the procedure
CPT/HCPCS: 97605; A4663

== ENCOUNTER 2019-05-31 07:50 | Outpatient (CLI) | payer BC | END 2019-05-31 09:28 | disposition home or self-care (01) | LOC: WOUND CARE 07:50 → EDSTATUS 08:00 → WOUND CARE 09:28 | PROVIDERS: ATTEND Surgery | DX: T81.30XD Disruption of wound, unspecified, subsequent encounter (principal); L98.492 Non-pressure chronic ulcer of skin of other sites with fat layer exposed; E66.9 Obesity, unspecified; Z68.38 Body mass index [BMI] 38.0-38.9, adult; Z86.19 Personal history of other infectious and parasitic diseases; Z87.891 Personal history of nicotine dependence; Z90.710 Acquired absence of both cervix and uterus; Y83.8 Other surgical procedures as the cause of abnormal reaction of the patient, or of later complication, without mention of misadventure at the time of the procedure | CPT/HCPCS: 97605; A4456; A4663 ==

== ENCOUNTER 2019-06-05 08:10 | Day surgery (SDC) | payer BC ==
[2019-06-05] MEDS ORDERED: LIDOcaine 2% 5ml jelly ONE (09:29)
== END 2019-06-05 11:10 | disposition home or self-care (01) ==
LOC: WOUND CARE 08:10
PROVIDERS: ATTEND Surgery
DX: T81.30XD Disruption of wound, unspecified, subsequent encounter (principal); L98.492 Non-pressure chronic ulcer of skin of other sites with fat layer exposed; E66.9 Obesity, unspecified; Z68.38 Body mass index [BMI] 38.0-38.9, adult; Z86.19 Personal history of other infectious and parasitic diseases; Z87.891 Personal history of nicotine dependence; Z90.710 Acquired absence of both cervix and uterus; Y83.8 Other surgical procedures as the cause of abnormal reaction of the patient, or of later complication, without mention of misadventure at the time of the procedure
CPT/HCPCS: 97597; A4456; A4663

== ENCOUNTER 2019-06-08 07:40 | Day surgery (SDC) | payer BC, OTHER ==
[2019-06-08] MEDS ORDERED: LIDOcaine/PRILOcaine 5gm cream TP ONE (08:54)
== END 2019-06-08 10:10 | disposition home or self-care (01) ==
LOC: WOUND CARE 07:40
PROVIDERS: ATTEND Surgery
DX: T81.30XD Disruption of wound, unspecified, subsequent encounter (principal); L98.492 Non-pressure chronic ulcer of skin of other sites with fat layer exposed; E66.9 Obesity, unspecified; Z68.38 Body mass index [BMI] 38.0-38.9, adult; Z86.19 Personal history of other infectious and parasitic diseases; Z87.891 Personal history of nicotine dependence; Z90.710 Acquired absence of both cervix and uterus; Y83.8 Other surgical procedures as the cause of abnormal reaction of the patient, or of later complication, without mention of misadventure at the time of the procedure
CPT/HCPCS: 97605; A4663; A6234

== ENCOUNTER 2019-06-12 07:40 | Day surgery (SDC) | payer BC, OTHER ==
[2019-06-12] MEDS ORDERED: LIDOcaine/PRILOcaine 5gm cream TP ONE (08:57)
== END 2019-06-12 10:54 | disposition home or self-care (01) ==
LOC: WOUND CARE 07:40
PROVIDERS: ATTEND Surgery
DX: T81.30XD Disruption of wound, unspecified, subsequent encounter (principal); L98.492 Non-pressure chronic ulcer of skin of other sites with fat layer exposed; E66.9 Obesity, unspecified; Z68.38 Body mass index [BMI] 38.0-38.9, adult; Z86.19 Personal history of other infectious and parasitic diseases; Z87.891 Personal history of nicotine dependence; Z90.710 Acquired absence of both cervix and uterus; Y83.8 Other surgical procedures as the cause of abnormal reaction of the patient, or of later complication, without mention of misadventure at the time of the procedure
CPT/HCPCS: 97597; A4663; A6234; A6250

== ENCOUNTER 2019-06-15 07:50 | Outpatient (CLI) | payer OTHER ==
[2019-06-15] MEDS ORDERED: LIDOcaine/PRILOcaine 5gm cream TP ONE (08:48)
== END 2019-06-15 09:35 | disposition home or self-care (01) ==
LOC: WOUND CARE 07:50 → EDSTATUS 08:30 → WOUND CARE 09:35
PROVIDERS: ATTEND Surgery
DX: T81.30XD Disruption of wound, unspecified, subsequent encounter (principal); L98.492 Non-pressure chronic ulcer of skin of other sites with fat layer exposed; E66.9 Obesity, unspecified; Z68.38 Body mass index [BMI] 38.0-38.9, adult; Z86.19 Personal history of other infectious and parasitic diseases; Z87.891 Personal history of nicotine dependence; Z90.710 Acquired absence of both cervix and uterus; Y83.8 Other surgical procedures as the cause of abnormal reaction of the patient, or of later complication, without mention of misadventure at the time of the procedure
CPT/HCPCS: 97605; A4663

== ENCOUNTER 2019-06-19 07:55 | Day surgery (SDC) | payer OTHER ==
[2019-06-19] MEDS ORDERED: LIDOcaine/PRILOcaine 5gm cream TP ONE (08:55)
== END 2019-06-19 10:20 | disposition home or self-care (01) ==
LOC: WOUND CARE 07:55
PROVIDERS: ATTEND Surgery
DX: T81.30XD Disruption of wound, unspecified, subsequent encounter (principal); L98.492 Non-pressure chronic ulcer of skin of other sites with fat layer exposed; E66.9 Obesity, unspecified; Z68.38 Body mass index [BMI] 38.0-38.9, adult; Z86.19 Personal history of other infectious and parasitic diseases; Z87.891 Personal history of nicotine dependence; Z90.710 Acquired absence of both cervix and uterus; Y83.8 Other surgical procedures as the cause of abnormal reaction of the patient, or of later complication, without mention of misadventure at the time of the procedure
CPT/HCPCS: 11042; A6266; A4663; A6212

== ENCOUNTER 2019-06-21 06:26 | Outpatient (CLI) | payer OTHER ==
[2019-06-21 07:26] LABS: BASOPHILS % (AUTO) 0.7 % (0-1); EOSINOPHILS # (AUTO) 0.2 X10'3 (0-0.9); EOSINOPHILS % (AUTO) 2.3 % (0-6); HEMATOCRIT 36.3 % (35.0-45.0); HEMOGLOBIN 12.2 g/dl (12.0-16.0); LYMPHOCYTES # (AUTO) 1.5 X10'3 (1.1-4.8); LYMPHOCYTES % (AUTO) 19.8 % (21-51); MEAN CORPUSCULAR HEMOGLOBIN 28.7 PG (27.0-31.0); MEAN CORPUSCULAR HGB CONC 33.6 g/dL (33.0-36.5); MEAN CORPUSCULAR VOLUME 85.4 FL (78-98); MEAN PLATELET VOLUME 7.9 FL (7.4-10.4); MONOCYTES # (AUTO) 0.4 X10'3 (0-0.9); MONOCYTES % (AUTO) 5.9 % (2-12); NEUTROPHILS # (AUTO) 5.3 X10'3 (1.8-7.7); NEUTROPHILS % (AUTO) 71.3 % (42-75); PLATELET COUNT 333 X10'3 (140-440); RED BLOOD COUNT 4.26 X10'6 (4.20-5.60); RED CELL DISTRIBUTION WIDTH 13.3 % (11.5-14.5); WHITE BLOOD COUNT 7.4 X10'3 (4.5-11.0)
[2019-06-21 07:54] LABS: ALANINE AMINOTRANSFERASE 23 U/L (12-78); ALBUMIN 3.7 G/DL (3.4-5.0); ALBUMIN/GLOBULIN RATIO 0.8 (1.1-1.5); ALKALINE PHOSPHATASE 100 IU/L (46-116); ANION GAP 5 (8-16); ASPARTATE AMINO TRANSFERASE 11 U/L (10-37); BILIRUBIN,TOTAL 0.3 MG/DL (0.1-1.0); BLOOD UREA NITROGEN 18 MG/DL (7-18); BUN/CREATININE RATIO 14.4 (6.6-38.0); CALCIUM 9.2 MG/DL (8.5-10.1); CHLORIDE 105 MMOL/L (99-107); CREATININE 1.25 MG/DL (0.40-0.90); GLUCOSE 106 MG/DL (70-104); POTASSIUM 4.1 MMOL/L (3.5-5.1); SODIUM 137 MMOL/L (135-145); TOTAL CARBON DIOXIDE 27.3 MMOL/L (24-32); TOTAL PROTEIN 8.2 G/DL (6.4-8.2); eGFR 45 ML/MIN
[2019-06-22 09:12] LABS: ESTRADIOL 17.1 pg/mL (.)
[2019-06-24 06:09] LABS: TESTOSTERONE, FREE, DIRECT 5.2 pg/mL (0.0-4.2)
[2019-06-24 08:09] LABS: INSULIN 26.1 uIU/mL (2.6-24.9)
== END 2019-06-21 23:59 | disposition home or self-care (01) ==
LOC: LAB 06:26
PROVIDERS: ATTEND Obstetrics & Gynecology
DX: N32.1 Vesicointestinal fistula (principal); Z88.0 Allergy status to penicillin; Z91.018 Allergy to other foods
CPT/HCPCS: 36415; 80053; 82670; 82679; 83525; 84402; 84439; 84443; 85025

== ENCOUNTER 2019-06-22 07:50 | Outpatient (CLI) | payer OTHER | END 2019-06-22 09:10 | disposition home or self-care (01) | LOC: WOUND CARE 07:50 → EDSTATUS 08:00 → WOUND CARE 09:10 | PROVIDERS: ATTEND Surgery | DX: T81.30XD Disruption of wound, unspecified, subsequent encounter (principal); L98.492 Non-pressure chronic ulcer of skin of other sites with fat layer exposed; E66.9 Obesity, unspecified; Z68.38 Body mass index [BMI] 38.0-38.9, adult; Z86.19 Personal history of other infectious and parasitic diseases; Z87.891 Personal history of nicotine dependence; Z90.710 Acquired absence of both cervix and uterus; Y83.8 Other surgical procedures as the cause of abnormal reaction of the patient, or of later complication, without mention of misadventure at the time of the procedure | CPT/HCPCS: A4663; A6213; A6449; G0463 ==

== ENCOUNTER 2019-06-26 07:55 | Day surgery (SDC) | payer OTHER ==
[2019-06-26] MEDS ORDERED: LIDOcaine/PRILOcaine 5gm cream TP ONE (08:52)
[2019-06-26] MEDS ORDERED: iohexol 300mg/ml 100ml inj. ONE (10:41)
== END 2019-06-26 12:03 | disposition home or self-care (01) ==
LOC: WOUND CARE 07:55
PROVIDERS: ATTEND Surgery
DX: T81.30XD Disruption of wound, unspecified, subsequent encounter (principal); L98.492 Non-pressure chronic ulcer of skin of other sites with fat layer exposed; Z87.891 Personal history of nicotine dependence; E66.9 Obesity, unspecified; Z68.38 Body mass index [BMI] 38.0-38.9, adult; Z86.19 Personal history of other infectious and parasitic diseases; Z90.710 Acquired absence of both cervix and uterus; Y83.8 Other surgical procedures as the cause of abnormal reaction of the patient, or of later complication, without mention of misadventure at the time of the procedure
CPT/HCPCS: 11042; 74178; 97605; Q9967; A4663; A6234

== ENCOUNTER 2019-06-29 07:55 | Outpatient (CLI) | payer OTHER | END 2019-06-29 08:42 | disposition home or self-care (01) | LOC: WOUND CARE 07:55 → EDSTATUS 08:00 → WOUND CARE 08:42 | PROVIDERS: ATTEND Nurse Practitioner Family | DX: T81.30XD Disruption of wound, unspecified, subsequent encounter (principal); L98.492 Non-pressure chronic ulcer of skin of other sites with fat layer exposed; E66.9 Obesity, unspecified; Z68.38 Body mass index [BMI] 38.0-38.9, adult; Z87.891 Personal history of nicotine dependence; Z86.19 Personal history of other infectious and parasitic diseases; Z90.710 Acquired absence of both cervix and uterus; Y83.8 Other surgical procedures as the cause of abnormal reaction of the patient, or of later complication, without mention of misadventure at the time of the procedure | CPT/HCPCS: 97605; A4456; A4663; A6234 ==

== ENCOUNTER 2019-07-04 07:52 | Day surgery (SDC) | payer OTHER ==
[2019-07-04] MEDS ORDERED: LIDOcaine 2% 5ml jelly ONE (09:00)
== END 2019-07-04 09:55 | disposition home or self-care (01) ==
LOC: WOUND CARE 07:52
PROVIDERS: ATTEND Nurse Practitioner Family
DX: T81.30XD Disruption of wound, unspecified, subsequent encounter (principal); L98.492 Non-pressure chronic ulcer of skin of other sites with fat layer exposed; E66.9 Obesity, unspecified; Z68.38 Body mass index [BMI] 38.0-38.9, adult; Z87.891 Personal history of nicotine dependence; Z86.19 Personal history of other infectious and parasitic diseases; Z90.710 Acquired absence of both cervix and uterus; Y83.8 Other surgical procedures as the cause of abnormal reaction of the patient, or of later complication, without mention of misadventure at the time of the procedure
CPT/HCPCS: 97597; A4663; A6234

== ENCOUNTER 2019-07-07 07:43 | Outpatient (CLI) | payer OTHER | END 2019-07-07 09:19 | disposition home or self-care (01) | LOC: WOUND CARE 07:43 → EDSTATUS 08:00 → WOUND CARE 09:19 | PROVIDERS: ATTEND Surgery | DX: T81.31XD Disruption of external operation (surgical) wound, not elsewhere classified, subsequent encounter (principal); L98.492 Non-pressure chronic ulcer of skin of other sites with fat layer exposed; E66.9 Obesity, unspecified; J30.1 Allergic rhinitis due to pollen; Z68.38 Body mass index [BMI] 38.0-38.9, adult; Z90.710 Acquired absence of both cervix and uterus; Z87.891 Personal history of nicotine dependence; Z86.19 Personal history of other infectious and parasitic diseases; Y83.8 Other surgical procedures as the cause of abnormal reaction of the patient, or of later complication, without mention of misadventure at the time of the procedure | CPT/HCPCS: 97605; A4456; A4663 ==

== ENCOUNTER 2019-07-11 08:05 | Outpatient (CLI) | payer OTHER | END 2019-07-11 11:40 | disposition home or self-care (01) | LOC: WOUND CARE 08:05 | PROVIDERS: ATTEND Surgery | DX: T81.31XD Disruption of external operation (surgical) wound, not elsewhere classified, subsequent encounter (principal); L98.492 Non-pressure chronic ulcer of skin of other sites with fat layer exposed; E66.9 Obesity, unspecified; J30.1 Allergic rhinitis due to pollen; Z68.38 Body mass index [BMI] 38.0-38.9, adult; Z90.710 Acquired absence of both cervix and uterus; Z87.891 Personal history of nicotine dependence; Z86.19 Personal history of other infectious and parasitic diseases; Y83.8 Other surgical procedures as the cause of abnormal reaction of the patient, or of later complication, without mention of misadventure at the time of the procedure | CPT/HCPCS: 97605; A4456; A4663; A6234 ==

== ENCOUNTER 2019-07-14 08:03 | Day surgery (SDC) | payer OTHER ==
[2019-07-14] MEDS ORDERED: LIDOcaine/PRILOcaine 5gm cream TP ONE (09:01)
== END 2019-07-14 10:16 | disposition home or self-care (01) ==
LOC: WOUND CARE 08:03
PROVIDERS: ATTEND Surgery
DX: T81.30XD Disruption of wound, unspecified, subsequent encounter (principal); L98.492 Non-pressure chronic ulcer of skin of other sites with fat layer exposed; E66.9 Obesity, unspecified; J30.1 Allergic rhinitis due to pollen; Z68.38 Body mass index [BMI] 38.0-38.9, adult; Z90.710 Acquired absence of both cervix and uterus; Z87.891 Personal history of nicotine dependence; Z86.19 Personal history of other infectious and parasitic diseases; Y83.8 Other surgical procedures as the cause of abnormal reaction of the patient, or of later complication, without mention of misadventure at the time of the procedure
CPT/HCPCS: 97605; A4456; A4663; A6243

== ENCOUNTER 2019-07-21 07:56 | Day surgery (SDC) | payer OTHER ==
[2019-07-21] MEDS ORDERED: LIDOcaine 2% 5ml jelly ONE (09:39)
== END 2019-07-21 10:14 | disposition home or self-care (01) ==
LOC: WOUND CARE 07:56
PROVIDERS: ATTEND Surgery
DX: T81.30XD Disruption of wound, unspecified, subsequent encounter (principal); L98.492 Non-pressure chronic ulcer of skin of other sites with fat layer exposed; E66.9 Obesity, unspecified; J30.1 Allergic rhinitis due to pollen; Z68.38 Body mass index [BMI] 38.0-38.9, adult; Z90.710 Acquired absence of both cervix and uterus; Z87.891 Personal history of nicotine dependence; Z86.19 Personal history of other infectious and parasitic diseases; Y83.8 Other surgical procedures as the cause of abnormal reaction of the patient, or of later complication, without mention of misadventure at the time of the procedure
CPT/HCPCS: 11042; A6266; A4663; A6213

== ENCOUNTER 2019-07-25 07:59 | Outpatient (CLI) | payer OTHER | END 2019-07-25 09:07 | disposition home or self-care (01) | LOC: WOUND CARE 07:59 → EDSTATUS 08:00 → WOUND CARE 09:07 | PROVIDERS: ATTEND Nurse Practitioner Family | DX: T81.30XD Disruption of wound, unspecified, subsequent encounter (principal); L98.492 Non-pressure chronic ulcer of skin of other sites with fat layer exposed; E66.9 Obesity, unspecified; J30.1 Allergic rhinitis due to pollen; Z68.38 Body mass index [BMI] 38.0-38.9, adult; Z90.710 Acquired absence of both cervix and uterus; Z87.891 Personal history of nicotine dependence; Z86.19 Personal history of other infectious and parasitic diseases; Y83.8 Other surgical procedures as the cause of abnormal reaction of the patient, or of later complication, without mention of misadventure at the time of the procedure | CPT/HCPCS: A6266; G0463; A4663; A6212 ==

== ENCOUNTER 2019-07-28 08:02 | Day surgery (SDC) | payer OTHER ==
[2019-07-28] MEDS ORDERED: LIDOcaine 2% 5ml jelly ONE (09:04)
== END 2019-07-28 09:39 | disposition home or self-care (01) ==
LOC: WOUND CARE 08:02
PROVIDERS: ATTEND Surgery
DX: T81.30XD Disruption of wound, unspecified, subsequent encounter (principal); L98.492 Non-pressure chronic ulcer of skin of other sites with fat layer exposed; E66.9 Obesity, unspecified; J30.1 Allergic rhinitis due to pollen; Z68.38 Body mass index [BMI] 38.0-38.9, adult; Z90.710 Acquired absence of both cervix and uterus; Z87.891 Personal history of nicotine dependence; Z86.19 Personal history of other infectious and parasitic diseases; Y83.8 Other surgical procedures as the cause of abnormal reaction of the patient, or of later complication, without mention of misadventure at the time of the procedure
CPT/HCPCS: A4663; A6021; A6212

== ENCOUNTER 2019-08-04 08:10 | Day surgery (SDC) | payer OTHER ==
[2019-08-04] MEDS ORDERED: LIDOcaine 2% 5ml jelly ONE (09:18)
== END 2019-08-04 10:30 | disposition home or self-care (01) ==
LOC: WOUND CARE 08:10
PROVIDERS: ATTEND Nurse Practitioner Family
DX: T81.30XD Disruption of wound, unspecified, subsequent encounter (principal); L98.492 Non-pressure chronic ulcer of skin of other sites with fat layer exposed; E66.9 Obesity, unspecified; J30.1 Allergic rhinitis due to pollen; Z68.38 Body mass index [BMI] 38.0-38.9, adult; Z90.710 Acquired absence of both cervix and uterus; Z87.891 Personal history of nicotine dependence; Z86.19 Personal history of other infectious and parasitic diseases; Y83.8 Other surgical procedures as the cause of abnormal reaction of the patient, or of later complication, without mention of misadventure at the time of the procedure
CPT/HCPCS: 97597; A4663; A6021; A6212

== ENCOUNTER 2019-08-18 07:53 | Day surgery (SDC) | payer OTHER ==
[2019-08-18] MEDS ORDERED: LIDOcaine/PRILOcaine 5gm cream TP ONE (08:54)
[2019-08-18] MEDS ORDERED: Silvasorb gel 45gm tube TP ONE (09:50)
== END 2019-08-18 10:03 | disposition home or self-care (01) ==
LOC: WOUND CARE 07:53
PROVIDERS: ATTEND Surgery
DX: T81.30XD Disruption of wound, unspecified, subsequent encounter (principal); L98.492 Non-pressure chronic ulcer of skin of other sites with fat layer exposed; E66.9 Obesity, unspecified; J30.1 Allergic rhinitis due to pollen; Z68.38 Body mass index [BMI] 38.0-38.9, adult; Z90.710 Acquired absence of both cervix and uterus; Z87.891 Personal history of nicotine dependence; Z86.19 Personal history of other infectious and parasitic diseases; Y83.8 Other surgical procedures as the cause of abnormal reaction of the patient, or of later complication, without mention of misadventure at the time of the procedure
CPT/HCPCS: 97597

== ENCOUNTER 2019-08-22 06:51 | Outpatient (CLI) | payer OTHER ==
[2019-08-22 07:32] LABS: CLARITY,URINE CLEAR (Clear); COLOR,URINE YELLOW (Yellow); GLUCOSE, URINE NEGATIVE (Neg); KETONES,URINE NEGATIVE (Neg); LEUKOCYTE ESTERASE ,URINE NEGATIVE (Neg); NITRITES, URINE NEGATIVE (Neg); OCCULT BLOOD,URINE NEGATIVE (Neg); PROTEIN,URINE NEGATIVE (Neg); UROBILINOGEN,URINE 0.2 E.U/dL (0.2-1.0)
[2019-08-22 07:33] LABS: UA COLLECTION TYPE CLN CATCH MIDSTREAM
[2019-08-22 07:35] LABS: BASOPHILS # (AUTO) 0.1 X10'3 (0-0.2); BASOPHILS % (AUTO) 1.1 % (0-1); EOSINOPHILS # (AUTO) 0.2 X10'3 (0-0.9); HEMATOCRIT 39.2 % (35.0-45.0); HEMOGLOBIN 12.9 g/dl (12.0-16.0); LYMPHOCYTES # (AUTO) 1.9 X10'3 (1.1-4.8); LYMPHOCYTES % (AUTO) 24.9 % (21-51); MEAN CORPUSCULAR HEMOGLOBIN 28.3 PG (27.0-31.0); MEAN CORPUSCULAR VOLUME 85.8 FL (78-98); MEAN PLATELET VOLUME 8.1 FL (7.4-10.4); MONOCYTES # (AUTO) 0.5 X10'3 (0-0.9); MONOCYTES % (AUTO) 6.8 % (2-12); NEUTROPHILS # (AUTO) 4.8 X10'3 (1.8-7.7); NEUTROPHILS % (AUTO) 64.2 % (42-75); PLATELET COUNT 366 X10'3 (140-440); RED BLOOD COUNT 4.57 X10'6 (4.20-5.60); RED CELL DISTRIBUTION WIDTH 13.8 % (11.5-14.5); WHITE BLOOD COUNT 7.5 X10'3 (4.5-11.0)
[2019-08-22 08:01] LABS: ALANINE AMINOTRANSFERASE 22 U/L (12-78); ALBUMIN 3.7 G/DL (3.4-5.0); ALBUMIN/GLOBULIN RATIO 0.8 (1.1-1.5); ALKALINE PHOSPHATASE 107 IU/L (46-116); ANION GAP 6 (8-16); ASPARTATE AMINO TRANSFERASE 14 U/L (10-37); BILIRUBIN,TOTAL 0.2 MG/DL (0.1-1.0); BLOOD UREA NITROGEN 17 MG/DL (7-18); BUN/CREATININE RATIO 13.2 (6.6-38.0); CALCIUM 9.4 MG/DL (8.5-10.1); CHLORIDE 106 MMOL/L (99-107); CHOLESTEROL 200 MG/DL (0-200); CREATININE 1.29 MG/DL (0.40-0.90); GLUCOSE 102 MG/DL (70-104); HDL CHOLESTEROL 40 MG/DL (35-60); LDL CHOLESTEROL 102 MG/DL (50-100); POTASSIUM 4.4 MMOL/L (3.5-5.1); SODIUM 142 MMOL/L (135-145); TOTAL CARBON DIOXIDE 29.8 MMOL/L (24-32); TOTAL PROTEIN 8.4 G/DL (6.4-8.2); TRIGLYCERIDES 297 MG/DL (20-135); eGFR 44 ML/MIN
== END 2019-08-22 23:59 | disposition home or self-care (01) ==
LOC: LAB 06:51
PROVIDERS: ATTEND Family Medicine
DX: N20.0 Calculus of kidney (principal); R39.9 Unspecified symptoms and signs involving the genitourinary system; R63.5 Abnormal weight gain; Z86.19 Personal history of other infectious and parasitic diseases
CPT/HCPCS: 36415; 80053; 80061; 81003; 84439; 84443; 85025

== ENCOUNTER 2019-08-25 07:55 | Day surgery (SDC) | payer OTHER ==
[2019-08-25] MEDS ORDERED: Silvasorb gel 45gm tube TP ONE (09:50)
== END 2019-08-25 10:05 | disposition home or self-care (01) ==
LOC: WOUND CARE 07:55
PROVIDERS: ATTEND Surgery
DX: T81.30XD Disruption of wound, unspecified, subsequent encounter (principal); L98.492 Non-pressure chronic ulcer of skin of other sites with fat layer exposed; E66.9 Obesity, unspecified; J30.1 Allergic rhinitis due to pollen; Z68.38 Body mass index [BMI] 38.0-38.9, adult; Z90.710 Acquired absence of both cervix and uterus; Z87.891 Personal history of nicotine dependence; Z86.19 Personal history of other infectious and parasitic diseases; Y83.8 Other surgical procedures as the cause of abnormal reaction of the patient, or of later complication, without mention of misadventure at the time of the procedure
CPT/HCPCS: 97597

== ENCOUNTER 2019-09-22 08:25 | Outpatient (CLI) | payer OTHER | END 2019-09-22 09:57 | disposition home or self-care (01) | LOC: WOUND CARE 08:25 → EDSTATUS 08:30 → WOUND CARE 09:57 | PROVIDERS: ATTEND Surgery | DX: T81.30XD Disruption of wound, unspecified, subsequent encounter (principal); L98.492 Non-pressure chronic ulcer of skin of other sites with fat layer exposed; E66.9 Obesity, unspecified; J30.1 Allergic rhinitis due to pollen; Z68.38 Body mass index [BMI] 38.0-38.9, adult; Z90.710 Acquired absence of both cervix and uterus; Z87.891 Personal history of nicotine dependence; Z86.19 Personal history of other infectious and parasitic diseases; Y83.8 Other surgical procedures as the cause of abnormal reaction of the patient, or of later complication, without mention of misadventure at the time of the procedure | CPT/HCPCS: G0463 ==

== ENCOUNTER 2019-10-11 11:51 | Outpatient (CLI) | payer OTHER ==
[2019-10-11 12:43] LABS: BASOPHILS # (AUTO) 0.1 X10'3 (0-0.2); BASOPHILS % (AUTO) 1.1 % (0-1); EOSINOPHILS # (AUTO) 0.3 X10'3 (0-0.9); EOSINOPHILS % (AUTO) 2.7 % (0-6); HEMATOCRIT 37.2 % (35.0-45.0); HEMOGLOBIN 12.3 g/dl (12.0-16.0); LYMPHOCYTES # (AUTO) 2.3 X10'3 (1.1-4.8); LYMPHOCYTES % (AUTO) 25.2 % (21-51); MEAN CORPUSCULAR HEMOGLOBIN 28.3 PG (27.0-31.0); MEAN CORPUSCULAR VOLUME 85.6 FL (78-98); MEAN PLATELET VOLUME 8.3 FL (7.4-10.4); MONOCYTES # (AUTO) 0.6 X10'3 (0-0.9); MONOCYTES % (AUTO) 6.2 % (2-12); NEUTROPHILS % (AUTO) 64.8 % (42-75); PLATELET COUNT 322 X10'3 (140-440); RED BLOOD COUNT 4.35 X10'6 (4.20-5.60); RED CELL DISTRIBUTION WIDTH 13.6 % (11.5-14.5); WHITE BLOOD COUNT 9.2 X10'3 (4.5-11.0)
[2019-10-11 13:15] LABS: ALANINE AMINOTRANSFERASE 6 U/L (12-78); ALBUMIN 3.4 G/DL (3.4-5.0); ALBUMIN/GLOBULIN RATIO 0.8 (1.1-1.5); ALKALINE PHOSPHATASE 103 IU/L (46-116); ANION GAP 9 (8-16); BILIRUBIN,TOTAL 0.2 MG/DL (0.1-1.0); BLOOD UREA NITROGEN 16 MG/DL (7-18); CALCIUM 8.6 MG/DL (8.5-10.1); CHLORIDE 105 MMOL/L (99-107); CHOL/HDL RATIO 6.7 (0.00-4.99); CHOLESTEROL 249 MG/DL (0-200); CREATININE 1.23 MG/DL (0.40-0.90); HDL CHOLESTEROL 37 MG/DL (35-60); LDL CHOLESTEROL 117 MG/DL (50-100); SODIUM 140 MMOL/L (135-145); TOTAL CARBON DIOXIDE 25.6 MMOL/L (24-32); TOTAL PROTEIN 7.9 G/DL (6.4-8.2); TRIGLYCERIDES 721 MG/DL (20-135); eGFR 46 ML/MIN
[2019-10-11 13:35] LABS: GLUCOSE 117 MG/DL (70-104); POTASSIUM 3.9 MMOL/L (3.5-5.1)
[2019-10-11 13:48] LABS: ASPARTATE AMINO TRANSFERASE 25 U/L (10-37)
== END 2019-10-11 23:59 | disposition home or self-care (01) ==
LOC: LAB 11:51
PROVIDERS: ATTEND Family Medicine
DX: E03.9 Hypothyroidism, unspecified (principal)
CPT/HCPCS: 36415; 80053; 80061; 84439; 84443; 85025

== ENCOUNTER 2019-10-26 06:08 | Outpatient (CLI) | payer OTHER ==
[2019-10-26 07:44] LABS: ALANINE AMINOTRANSFERASE 20 U/L (12-78); ALBUMIN 3.5 G/DL (3.4-5.0); ALBUMIN/GLOBULIN RATIO 0.8 (1.1-1.5); ALKALINE PHOSPHATASE 103 IU/L (46-116); ANION GAP 6 (8-16); ASPARTATE AMINO TRANSFERASE 14 U/L (10-37); BILIRUBIN,TOTAL 0.2 MG/DL (0.1-1.0); BLOOD UREA NITROGEN 17 MG/DL (7-18); BUN/CREATININE RATIO 14.4 (6.6-38.0); CALCIUM 9.3 MG/DL (8.5-10.1); CHLORIDE 106 MMOL/L (99-107); CHOL/HDL RATIO 3.9 (0.00-4.99); CHOLESTEROL 179 MG/DL (0-200); CREATININE 1.18 MG/DL (0.40-0.90); GLUCOSE 106 MG/DL (70-104); HDL CHOLESTEROL 46 MG/DL (35-60); LDL CHOLESTEROL 91 MG/DL (50-100); POTASSIUM 4.5 MMOL/L (3.5-5.1); SODIUM 139 MMOL/L (135-145); TOTAL CARBON DIOXIDE 26.8 MMOL/L (24-32); TOTAL PROTEIN 8.1 G/DL (6.4-8.2); TRIGLYCERIDES 249 MG/DL (20-135); eGFR 48 ML/MIN
[2019-10-26 08:05] LABS: TOTAL PROTEIN,URINE RANDOM < 6.0 MG/DL
== END 2019-10-26 23:59 | disposition home or self-care (01) ==
LOC: LAB 06:08
PROVIDERS: ATTEND Family Medicine
DX: E78.5 Hyperlipidemia, unspecified (principal)
CPT/HCPCS: 36415; 80053; 80061; 82570; 84156

== ENCOUNTER 2019-11-17 08:58 | Outpatient (CLI) | payer OTHER | END 2019-11-19 23:59 | disposition home or self-care (01) | LOC: RAD 08:58 | PROVIDERS: ATTEND Family Medicine | DX: E78.5 Hyperlipidemia, unspecified (principal); N28.9 Disorder of kidney and ureter, unspecified | CPT/HCPCS: 76775; 93975 ==

== ENCOUNTER → 2019-11-17 | Outpatient (CLI) | payer OTHER ==
[2019-11-17 07:26] LABS: BASOPHILS # (AUTO) 0.1 X10'3 (0-0.2); BASOPHILS % (AUTO) 0.9 % (0-1); CLARITY,URINE SLIGHTLY CLOUDY (Clear); COLOR,URINE YELLOW (Yellow); EOSINOPHILS # (AUTO) 0.2 X10'3 (0-0.9); EOSINOPHILS % (AUTO) 2.5 % (0-6); GLUCOSE, URINE NEGATIVE (Neg); HEMATOCRIT 37.7 % (35.0-45.0); HEMOGLOBIN 12.4 g/dl (12.0-16.0); KETONES,URINE NEGATIVE (Neg); LEUKOCYTE ESTERASE ,URINE NEGATIVE (Neg); LYMPHOCYTES # (AUTO) 1.3 X10'3 (1.1-4.8); LYMPHOCYTES % (AUTO) 19.5 % (21-51); MEAN CORPUSCULAR HEMOGLOBIN 28.4 PG (27.0-31.0); MEAN CORPUSCULAR HGB CONC 32.8 g/dL (33.0-36.5); MEAN CORPUSCULAR VOLUME 86.5 FL (78-98); MEAN PLATELET VOLUME 8.4 FL (7.4-10.4); MONOCYTES # (AUTO) 0.5 X10'3 (0-0.9); MONOCYTES % (AUTO) 6.8 % (2-12); NEUTROPHILS # (AUTO) 4.8 X10'3 (1.8-7.7); NEUTROPHILS % (AUTO) 70.3 % (42-75); NITRITES, URINE NEGATIVE (Neg); OCCULT BLOOD,URINE NEGATIVE (Neg); PH,URINE 5.5 (4.8-8.0); PLATELET COUNT 330 X10'3 (140-440); PROTEIN,URINE NEGATIVE (Neg); RED BLOOD COUNT 4.36 X10'6 (4.20-5.60); RED CELL DISTRIBUTION WIDTH 13.8 % (11.5-14.5); UA COLLECTION TYPE NON-SPECIFIED; UROBILINOGEN,URINE 0.2 E.U/dL (0.2-1.0); WHITE BLOOD COUNT 6.9 X10'3 (4.5-11.0)
[2019-11-17 07:28] LABS: BACTERIA,URINE 1+ /HPF (Neg); MUCUS STRANDS FEW /LPF (Neg); RBC,URINE NONE SEEN /HPF (0-2); SQUAMOUS EPITHELIAL CELL,UR MODERATE /LPF (FEW); WBC,URINE 0-4 /HPF (0-4)
[2019-11-17 07:42] LABS: ALANINE AMINOTRANSFERASE 20 U/L (12-78); ALBUMIN 3.5 G/DL (3.4-5.0); ALBUMIN/GLOBULIN RATIO 0.8 (1.1-1.5); ALKALINE PHOSPHATASE 84 IU/L (46-116); ANION GAP 7 (8-16); ASPARTATE AMINO TRANSFERASE 12 U/L (10-37); BILIRUBIN,TOTAL 0.3 MG/DL (0.1-1.0); BLOOD UREA NITROGEN 19 MG/DL (7-18); BUN/CREATININE RATIO 14.6 (6.6-38.0); CALCIUM 9.4 MG/DL (8.5-10.1); CHLORIDE 104 MMOL/L (99-107); CHOL/HDL RATIO 4.5 (0.00-4.99); CHOLESTEROL 206 MG/DL (0-200); GLUCOSE 109 MG/DL (70-104); HDL CHOLESTEROL 46 MG/DL (35-60); LDL CHOLESTEROL 113 MG/DL (50-100); POTASSIUM 4.2 MMOL/L (3.5-5.1); SODIUM 138 MMOL/L (135-145); TOTAL CARBON DIOXIDE 26.6 MMOL/L (24-32); TOTAL PROTEIN 7.9 G/DL (6.4-8.2); TRIGLYCERIDES 218 MG/DL (20-135); eGFR 43 ML/MIN
== END | disposition home or self-care (01) ==
LOC: LAB 06:48
PROVIDERS: ATTEND Family Medicine
DX: N20.0 Calculus of kidney (principal); R63.5 Abnormal weight gain; R39.9 Unspecified symptoms and signs involving the genitourinary system; Z86.19 Personal history of other infectious and parasitic diseases
CPT/HCPCS: 36415; 80053; 80061; 81001; 84436; 84443; 85025

== ENCOUNTER 2020-01-10 06:50 | Outpatient (CLI) | payer BC ==
[2020-01-10 12:33] LABS: ALANINE AMINOTRANSFERASE 25 U/L (12-78); ALBUMIN 3.4 G/DL (3.4-5.0); ALBUMIN/GLOBULIN RATIO 0.7 (1.1-1.5); ALKALINE PHOSPHATASE 99 IU/L (46-116); ANION GAP 11 (8-16); BILIRUBIN,TOTAL 0.2 MG/DL (0.1-1.0); BLOOD UREA NITROGEN 18 MG/DL (7-18); BUN/CREATININE RATIO 14.4 (6.6-38.0); CHLORIDE 105 MMOL/L (99-107); CREATININE 1.25 MG/DL (0.40-0.90); SODIUM 141 MMOL/L (135-145); TOTAL CARBON DIOXIDE 24.6 MMOL/L (24-32); TOTAL PROTEIN 8.1 G/DL (6.4-8.2); eGFR 45 ML/MIN
[2020-01-10 12:37] LABS: GLUCOSE 131 MG/DL (70-104); POTASSIUM 3.9 MMOL/L (3.5-5.1)
[2020-01-10 12:46] LABS: CLARITY,URINE SLIGHTLY CLOUDY (Clear); COLOR,URINE YELLOW (Yellow); GLUCOSE, URINE NEGATIVE (Neg); KETONES,URINE NEGATIVE (Neg); LEUKOCYTE ESTERASE ,URINE NEGATIVE (Neg); NITRITES, URINE NEGATIVE (Neg); OCCULT BLOOD,URINE NEGATIVE (Neg); PH,URINE 5.5 (4.8-8.0); PROTEIN,URINE NEGATIVE (Neg); UROBILINOGEN,URINE 0.2 E.U/dL (0.2-1.0)
[2020-01-10 12:53] LABS: UA COLLECTION TYPE CLN CATCH MIDSTREAM
[2020-01-10 13:02] LABS: HYALINE CASTS 0-3 /LPF (NEGATIVE); MUCUS STRANDS MODERATE /LPF (Neg); SQUAMOUS EPITHELIAL CELL,UR MANY /LPF (FEW)
[2020-01-10 13:03] LABS: BACTERIA,URINE 1+ /HPF (Neg); RBC,URINE 0-2 /HPF (0-2); WBC,URINE 0-4 /HPF (0-4)
[2020-01-10 13:35] LABS: ASPARTATE AMINO TRANSFERASE 20 U/L (10-37)
== END 2020-01-10 23:59 | disposition home or self-care (01) ==
LOC: LAB 06:50
PROVIDERS: ATTEND Family Medicine
DX: N20.0 Calculus of kidney (principal); E78.5 Hyperlipidemia, unspecified; N28.9 Disorder of kidney and ureter, unspecified; Z86.19 Personal history of other infectious and parasitic diseases
CPT/HCPCS: 36415; 80053; 81001; 87522

== ENCOUNTER 2020-02-02 09:39 | Emergency (ER) | payer BC ==
[~2020-02-02] VITALS: Ht 177.8 cm; Wt 126.4 kg
[2020-02-02 09:43] VITALS: BP 134/93
== END 2020-02-02 10:53 | disposition home or self-care (01) ==
LOC: ER 09:40
DX: B34.8 Other viral infections of unspecified site (principal); R19.7 Diarrhea, unspecified; R05 Cough; R50.9 Fever, unspecified; M79.18 Myalgia, other site; R53.83 Other fatigue; F41.9 Anxiety disorder, unspecified; F32.9 Major depressive disorder, single episode, unspecified; Z20.828 Contact with and (suspected) exposure to other viral communicable diseases; Z86.19 Personal history of other infectious and parasitic diseases; Z72.89 Other problems related to lifestyle; Z88.0 Allergy status to penicillin; Z91.018 Allergy to other foods; Z79.899 Other long term (current) drug therapy
CPT/HCPCS: 36415; 71045; 93005; 99283; 99285

== ENCOUNTER 2020-04-15 12:05 | Outpatient (CLI) | payer BC ==
[2020-04-15 13:19] LABS: ALANINE AMINOTRANSFERASE 20 U/L (12-78); ALBUMIN 3.5 G/DL (3.4-5.0); ALBUMIN/GLOBULIN RATIO 0.8 (1.1-1.5); ALKALINE PHOSPHATASE 84 IU/L (46-116); ANION GAP 6 (8-16); ASPARTATE AMINO TRANSFERASE 12 U/L (10-37); BILIRUBIN,TOTAL 0.2 MG/DL (0.1-1.0); BLOOD UREA NITROGEN 20 MG/DL (7-18); BUN/CREATININE RATIO 15.5 (6.6-38.0); CALCIUM 9.2 MG/DL (8.5-10.1); CHLORIDE 104 MMOL/L (99-107); CREATININE 1.29 MG/DL (0.40-0.90); GLUCOSE 141 MG/DL (70-104); POTASSIUM 3.8 MMOL/L (3.5-5.1); SODIUM 136 MMOL/L (135-145); TOTAL CARBON DIOXIDE 26.3 MMOL/L (24-32); eGFR 44 ML/MIN
== END 2020-04-15 23:59 | disposition home or self-care (01) ==
LOC: LAB 12:05
PROVIDERS: ATTEND Family Medicine
DX: N28.9 Disorder of kidney and ureter, unspecified (principal)
CPT/HCPCS: 36415; 80053; 84439; 84443

== ENCOUNTER 2020-05-30 08:58 | Emergency (ER) | payer BC ==
[~2020-05-30] VITALS: Ht 177.8 cm; Wt 127.3 kg
[2020-05-30 09:12] VITALS: BP 155/98
[2020-05-30] MEDS ORDERED: ALBU6.7H9 INH (09:46)
[2020-05-30] MEDS ORDERED: PRED20TA PO (09:46)
== END 2020-05-30 10:14 | disposition home or self-care (01) ==
LOC: ER 08:58 → EEVIPCON 08:58 → ER 10:14
DX: J45.909 Unspecified asthma, uncomplicated (principal); F31.4 Bipolar disorder, current episode depressed, severe, without psychotic features; Z87.448 Personal history of other diseases of urinary system; Z87.19 Personal history of other diseases of the digestive system; Z88.0 Allergy status to penicillin; Z91.018 Allergy to other foods; Z79.899 Other long term (current) drug therapy
CPT/HCPCS: 36415; 71045; 99283

== ENCOUNTER 2020-07-01 08:06 | Emergency (ER) | payer BC ==
[~2020-07-01] VITALS: Ht 177.8 cm; Wt 129.6 kg
[~2020-07-01 08:06] MED LIST changes: +ALBU6.7H9 INH
[2020-07-01] MEDS ORDERED: ondansetron/PF 4mg/2ml inj IV ONE (08:45)
[2020-07-01] MEDS ORDERED: normal saline 1000ML IV soln IVB ONE (08:45)
[2020-07-01] MEDS ORDERED: morphine 4 MG/ML inj SYRINge IV PRN (08:45)
[2020-07-01 09:09] LABS: CLARITY,URINE SLIGHTLY CLOUDY (Clear); COLOR,URINE DARK YELLOW (Yellow); GLUCOSE, URINE NEGATIVE (Neg); KETONES,URINE NEGATIVE (Neg); LEUKOCYTE ESTERASE ,URINE NEGATIVE (Neg); NITRITES, URINE NEGATIVE (Neg); OCCULT BLOOD,URINE NEGATIVE (Neg); PROTEIN,URINE NEGATIVE (Neg); UA COLLECTION TYPE NON-SPECIFIED; UROBILINOGEN,URINE 0.2 E.U/dL (0.2-1.0)
[2020-07-01 09:24] LABS: BASOPHILS # (AUTO) 0.1 X10'3 (0-0.2); BASOPHILS % (AUTO) 0.7 % (0-1); EOSINOPHILS # (AUTO) 0.2 X10'3 (0-0.9); EOSINOPHILS % (AUTO) 2.4 % (0-6); HEMATOCRIT 38.5 % (35.0-45.0); HEMOGLOBIN 12.6 g/dl (12.0-16.0); LYMPHOCYTES # (AUTO) 1.9 X10'3 (1.1-4.8); LYMPHOCYTES % (AUTO) 24.1 % (21-51); MEAN CORPUSCULAR HEMOGLOBIN 28.4 PG (27.0-31.0); MEAN CORPUSCULAR HGB CONC 32.8 g/dL (33.0-36.5); MEAN CORPUSCULAR VOLUME 86.5 FL (78-98); MEAN PLATELET VOLUME 8.5 FL (7.4-10.4); MONOCYTES # (AUTO) 0.6 X10'3 (0-0.9); MONOCYTES % (AUTO) 7.2 % (2-12); NEUTROPHILS # (AUTO) 5.1 X10'3 (1.8-7.7); NEUTROPHILS % (AUTO) 65.6 % (42-75); PLATELET COUNT 335 X10'3 (140-440); RED BLOOD COUNT 4.45 X10'6 (4.20-5.60); RED CELL DISTRIBUTION WIDTH 13.5 % (11.5-14.5); WHITE BLOOD COUNT 7.7 X10'3 (4.5-11.0)
[2020-07-01 09:34] LABS: BACTERIA,URINE FEW /HPF (Neg); HYALINE CASTS 0-3 /LPF (NEGATIVE); MUCUS STRANDS FEW /LPF (Neg); RBC,URINE NONE SEEN /HPF (0-2); SQUAMOUS EPITHELIAL CELL,UR FEW /LPF (FEW); WBC,URINE 0-4 /HPF (0-4)
[2020-07-01 09:36] LABS: ALANINE AMINOTRANSFERASE 25 U/L (12-78); ALBUMIN 3.5 G/DL (3.4-5.0); ALBUMIN/GLOBULIN RATIO 0.7 (1.1-1.5); ALKALINE PHOSPHATASE 89 IU/L (46-116); ANION GAP 11 (8-16); BILIRUBIN,TOTAL 0.3 MG/DL (0.1-1.0); BLOOD UREA NITROGEN 27 MG/DL (7-18); BUN/CREATININE RATIO 20.6 (6.6-38.0); CALCIUM 8.8 MG/DL (8.5-10.1); CHLORIDE 106 MMOL/L (99-107); CREATININE 1.31 MG/DL (0.40-0.90); GLUCOSE 110 MG/DL (70-104); SODIUM 142 MMOL/L (135-145); TOTAL CARBON DIOXIDE 25.5 MMOL/L (24-32); TOTAL PROTEIN 8.3 G/DL (6.4-8.2); eGFR 43 ML/MIN
[2020-07-01 09:37] LABS: ASPARTATE AMINO TRANSFERASE 18 U/L (10-37); CHOL/HDL RATIO 5.8 (0.00-4.99); CHOLESTEROL 231 MG/DL (0-200); HDL CHOLESTEROL 40 MG/DL (35-60); LDL CHOLESTEROL 119 MG/DL (50-100); LIPASE 185 U/L (73-393); POTASSIUM 4.6 MMOL/L (3.5-5.1); TRIGLYCERIDES 343 MG/DL (20-135)
[2020-07-01 11:17] VITALS: BP 136/87
== END 2020-07-01 11:26 | disposition home or self-care (01) ==
LOC: ER 08:06 → EEVIPCON 08:06 → ER 11:26
DX: R10.10 Upper abdominal pain, unspecified (principal); N18.9 Chronic kidney disease, unspecified; E78.5 Hyperlipidemia, unspecified; Z72.89 Other problems related to lifestyle; Z98.890 Other specified postprocedural states; Z88.0 Allergy status to penicillin; Z91.018 Allergy to other foods; Z79.899 Other long term (current) drug therapy
CPT/HCPCS: 36415; 74176; 80053; 80061; 81001; 83605; 83690; 85025; 96361; 96374; 96375; 99284; J2270; J2405; J7030

== ENCOUNTER 2020-07-26 05:57 | Outpatient (CLI) | payer BC ==
[2020-07-26] MEDS ORDERED: iohexol 300mg/ml 100ml inj. ONE (12:25)
== END 2020-07-26 23:59 | disposition home or self-care (01) ==
LOC: 64 CT 05:57
PROVIDERS: ATTEND Family Medicine
DX: K76.9 Liver disease, unspecified (principal); K57.30 Diverticulosis of large intestine without perforation or abscess without bleeding
CPT/HCPCS: 74177; Q9967

== ENCOUNTER 2020-08-02 09:20 | Day surgery (SDC) | payer BC ==
[~2020-08-02] VITALS: Ht 177.8 cm; Wt 127.7 kg
[2020-08-02 09:30] VITALS: BP 136/97
[2020-08-02] MEDS ORDERED: ALBU8.5H8 INH (09:38)
[2020-08-02] MEDS ORDERED: LEVO25CA4 PO (09:39)
[2020-08-02] MEDS ORDERED: RIZA10TA27 PO (09:40)
[2020-08-02] MEDS ORDERED: S-AD400T3 PO (09:40)
[2020-08-02] MEDS ORDERED: MIDAZolam 5mg/5ml vial ONE (10:06)
[2020-08-02] MEDS ORDERED: fentaNYL/PF 50MCG/1 ML 2ML syringe ONE (10:06)
[2020-08-02] MEDS ORDERED: LIDOcaine Viscous 15ml cup ONE (10:06)
[2020-08-02 11:13] VITALS: BP 120/71
[2020-08-02 11:23] VITALS: BP 117/70
[2020-08-02 11:33] VITALS: BP 125/73
== END 2020-08-02 11:50 | disposition home or self-care (01) ==
LOC: GI LAB 09:20
PROVIDERS: ATTEND Internal Medicine Gastroenterology
DX: R93.3 Abnormal findings on diagnostic imaging of other parts of digestive tract (principal); R10.10 Upper abdominal pain, unspecified; K20.80 Other esophagitis without bleeding; K31.89 Other diseases of stomach and duodenum; K57.10 Diverticulosis of small intestine without perforation or abscess without bleeding; E66.9 Obesity, unspecified; Z68.41 Body mass index [BMI] 40.0-44.9, adult; Z88.0 Allergy status to penicillin; Z91.018 Allergy to other foods; Z79.899 Other long term (current) drug therapy
CPT/HCPCS: 43239; 99152; J2250; J3010; J7040; A4620

== ENCOUNTER 2020-12-01 16:51 | Emergency (ER) | payer BC, OTHER ==
[~2020-12-01] VITALS: Ht 177.8 cm; Wt 126.3 kg
[~2020-12-01 16:51] MED LIST changes: -ALBU6.7H9 INH; +ALBU8.5H8 INH; +LEVO25CA4 PO; +RIZA10TA27 PO; +S-AD400T3 PO
[2020-12-01 16:56] VITALS: BP 145/82
[2020-12-01] MEDS ORDERED: ketorolac tromethamine 15mg/ml inj. IM ONE (17:25)
== END 2020-12-01 17:57 | disposition home or self-care (01) ==
LOC: ER 16:51
DX: M75.82 Other shoulder lesions, left shoulder (principal); Z87.440 Personal history of urinary (tract) infections; Z86.19 Personal history of other infectious and parasitic diseases; Z72.89 Other problems related to lifestyle; Z88.0 Allergy status to penicillin; Z91.018 Allergy to other foods; Z79.899 Other long term (current) drug therapy
CPT/HCPCS: 73030; 99283; J1885